=== PATIENT | male | born 1975 | race Caucasian/White ===

== ENCOUNTER 2022-11-20 00:31 | Emergency (ER) | payer OTHER, SELFPAY ==
[2022-11-20] VITALS (23 sets, daily range): BP systolic 126–220; BP diastolic 72–132; PULSE 70–90; RESP 7–22; TEMP 36.5; O2SAT 92–96; BMI 36.6
--- NOTE | 2022-11-20 01:16 | ED.CHESTPAI1 ---
HPI - Chest Pain General Chief Complaint: Chest Pain Stated Complaint: CHEST PAIN Time Seen by Provider: 11/20/22 01:16 Source: patient Mode of arrival: walk-in Limitations: no limitations History of Present Illness HPI narrative: pt presents emergency department complaining of chest pain. he states he has been recently treated for Sinusitis with Augmentin, and a Medrol Dosepak. Patient states he has been taking the medication for several days now. He went to bed last night was actually feeling better and in the middle of the night he woke up with chest pain substernal radiating to his neck and jaw. He states prior to having the pain he felt short of breath. He denied any fever, or chills. He denied any diaphoresis, dizziness, palpitations or lightheadedness. He states he had a heart catheterization 15 years ago. He states he has a history of an abnormal EKG and abnormal stress test. He had hyperlipidemia but in the last 3 years his cholesterol has been normal every time he has checked. He does not have a history of heart disease. He's never had stents. He has not taking any medications for the pain. He denies any anxiety, depression. Patient is not a smoker. He denies any history of thrombotic embolic disease. He denies any nausea, vomiting, diarrhea, constipation, or abdominal pain. He denies any trauma. Related Data Home Medications Medication Instructions Recorded Confirmed amoxicillin 875 mg-potassium 1 tab PO DAILY 11/20/22 11/20/22 clavulanate 125 mg tablet Allergies Allergy/AdvReac Type Severity Reaction Status Date / Time No Known Drug Allergies Allergy Verified 11/20/22 00:44 Review of Systems ROS Status of ROS 10 or more systems reviewed and unremarkable except as noted in history and below Exam Narrative Exam Narrative: Nurses notes and vital signs reviewed and patient is not hypoxic. General: Nontoxic, Well-appearing and in no apparent distress. Skin: Warm, dry, no pallor noted. No Rash Head: Normocephalic, atraumatic. Neck: Supple, non-tender. Eye: Pupils are equal, round and EOMI. No scleral icterus. Ears, Nose, Mouth, and Throat: TM clear, no posterior oropharynx erythema or nasal mucosal hypertrophy, uvula is mid-line Oral mucosa is moist Cardiovascular: Regular Rate and Rhythm without murmur, gallop or rub. Respiratory: No accessory muscle use or respiratory distress. Lungs are clear to auscultation, no wheezing, rales or rhonchi Chest Wall: no tenderness Back: No midline thoracic or lumbar vertebral tenderness. No CVA tenderness Musculoskeletal: normal ROM, no calf or popliteal tenderness, no lower extremity edema/swelling GI: Abdomen is soft, non-distended. Normal bowel sounds. No masses appreciated. No tenderness to palpation. No rebound, guarding, or rigidity noted. Neurological: A&O x4. No cranial nerve dysfunction observed. No truncal ataxia. Moves all extremities. Sensation intact. Psychiatric: Cooperative and interactive. Normal mood and affect. Constitutional Vital Signs, click to edit/add: Last Vital Signs Temp 97.7 F 11/20/22 00:41 Pulse 78 11/20/22 03:30 Resp 21 11/20/22 03:30 BP 130/85 11/20/22 03:22 Pulse Ox 96 11/20/22 02:00 O2 Del Method Room Air 11/20/22 00:41 Course Vital Signs Vital signs: Vital Signs Temperature 97.7 F 11/20/22 00:41 Pulse Rate 84 11/20/22 00:41 Respiratory Rate 18 11/20/22 00:41 Blood Pressure 168/100 H 11/20/22 00:41 Pulse Oximetry 96 11/20/22 00:41 Oxygen Delivery Method Room Air 11/20/22 00:41 Temperature 97.7 F 11/20/22 00:41 Pulse Rate 78 11/20/22 03:30 Respiratory Rate 21 11/20/22 03:30 Blood Pressure 130/85 11/20/22 03:22 Pulse Oximetry 96 11/20/22 02:00 Oxygen Delivery Method Room Air 11/20/22 00:41 MDM - Chest Pain MDM Narrative Medical decision making narrative: EKG is sinus rhythm at 78 bpm. There are no acute ischemic changes. Chest x-rays unremarkable. Lab studies show normal troponin without a delta ?2. Patient's heart score is less than 3. Patient is pain-free. He was given nitroglycerin, and Toradol in the emergency department for pain. 2nd EKG does not show any ischemic changes. Patient is stable for outpatient follow-up. At this time the patient is without objective evidence of an acute process requiring hospitalization or inpatient management. The patient has remained hemodynamically stable. No additional indication for emergent studies at this time. I answered all questions. Discussed discharge instructions including standard anticipatory guidance and what should prompt a return to the emergency department, including if they get worse are not getting better or develops any new or concerning symptoms. I've given them specific time frame in which to follow-up, and who to follow-up with. The patient demonstrates understanding. Patient is nontoxic and stable for discharge with outpatient follow-up. This note was created with the assistance of a speech recognition program. Although the intention is to generate documents that actually reflects the content of the visit, no guarantees can be provided that every mistake has been identified and corrected by editing. Differential Diagnosis Differential diagnosis: Likely pneumothorax, atypical chest pain, st elevation myocardial infarction and chest pain Lab Data Attestation: I reviewed the patient's lab results. Labs: Lab Results 11/20/22 11/20/22 11/20/22 Range/Units 00:49 02:05 02:51 WBC 11.7 H (4.0-11.0) 10^3/uL RBC 5.50 (4.70-6.10) 10^6/uL Hgb 15.2 (14.0-18.0) g/dL Hct 45.6 (42.0-54.0) % MCV 82.9 (80.0-94.0) fL MCH 27.6 (25.9-34.0) pg MCHC 33.3 (29.9-35.2) g/dL RDW 14.3 (11.0-15.0) % Plt Count 243 (150-450) 10^3/uL MPV 10.9 (9.5-13.5) fL Neut % (Auto) 78.7 H (43.0-75.0) % Lymph % (Auto) 13.7 L (20.5-60.0) % Forrest % (Auto) 5.9 (1.7-12.0) % Eos % (Auto) 1.1 (0.9-7.0) % Baso % (Auto) 0.2 (0.2-2.0) % Neut # (Auto) 9.2 H (1.4-6.5) 10^3/uL Lymph # (Auto) 1.6 (1.2-3.8) 10^3/uL Forrest # (Auto) 0.7 (0.3-0.8) 10^3/uL Eos # (Auto) 0.1 (0.0-0.7) 10^3/uL Baso # (Auto) 0.0 (0.0-0.1) 10^3/uL Abs Immat Gran (auto) 0.05 H (0.00-0.03) 10^3/uL Imm/Tot Granulo (auto) 0.4 (0.0-0.5) % D-Dimer <0.19 (<=0.59) mg/L FEU Sodium 138 (136-145) mmol/L Potassium 3.9 (3.5-5.1) mmol/L Chloride 103 (98-107) mmol/L Carbon Dioxide 26.9 (21.0-32.0) mmol/L Anion Gap 12.0 BUN 21.0 H (7.0-18.0) mg/dL Creatinine 1.21 (0.70-1.30) mg/dL Est GFR ( Amer) >60 (>=60) Est GFR (Non-Af Amer) >60 (>=60) BUN/Creatinine Ratio 17.4 Glucose 139 H (74-106) mg/dL Calcium 9.1 (8.5-10.1) mg/dL Total Bilirubin 0.3 (0.2-1.0) mg/dL AST 6 L (15-37) U/L ALT 32 (16-63) U/L Alkaline Phosphatase 75 (46-116) U/L Troponin I High Sens 7.9 6.7 (4.0-76.1) pg/mL NT-Pro-B Natriuret Pep 53.0 (<=450.0) pg/mL Total Protein 8.2 (6.4-8.2) g/dL Albumin 4.4 (3.4-5.0) g/dL Urine Opiates Screen Negative (NEGATIVE) Ur Buprenorphine Scrn Negative (NEGATIVE) Ur Oxycodone Screen Negative (NEGATIVE) Urine Methadone Screen Negative (NEGATIVE) Ur Propoxyphene Screen Negative (NEGATIVE) Ur Barbiturates Screen Negative (NEGATIVE) U Tricyclic Antidepress Negative (NEGATIVE) Ur Phencyclidine Scrn Negative (NEGATIVE) Ur Amphetamines Screen Negative (NEGATIVE) U Methamphetamines Scrn Negative (NEGATIVE) U Benzodiazepines Scrn Negative (NEGATIVE) Urine Cocaine Screen Negative (NEGATIVE) U Cannabinoids Screen Negative (NEGATIVE) ECG Data Attestation: I personally reviewed and interpreted this ECG as follows: Heart Score History: Slightly/Non-Suspicious ECG: Normal Age: >45-<65 years Risk Factors: No Risk Factors Troponin: <Normal Limit Total Heart Score Recommendations & Risks:: 1 Discharge Plan Discharge Chief Complaint: Chest Pain Clinical Impression: Chest pain Patient Disposition: Home, Self-Care Time of Disposition Decision: 03:29 Condition: Good Mode of Transportation: Private Vehicle Prescriptions / Home Meds: No Action amoxicillin-pot clavulanate 875-125 mg tablet 1 tab PO DAILY Instructions: Chest Pain (ED) Stand Alone Forms: Portal Instructions Referrals: Yeimy Rodrigez MD [Primary Care Provider] - 1 week Discharge Date/Time: 11/20/22 03:41
--- NOTE | 2022-11-20 01:17 | ECG_ITS ---
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
--- NOTE | 2022-11-20 01:17 | XR_ITS ---
[address] [address] Patient Name: KAROLINA TERRY MRN: [id number] date: 1975 Sex: M Assigned Patient Location: ER Current Patient Location: ER Accession/Order Number: [id number] Exam Date: 11/20/2022 01:05 Report Date: 11/20/2022 02:03 At the request of: CASS MACEDO Procedure: XR chest 1V EXAMINATION: XR chest 1V HISTORY: Chest pain COMPARISON: Chest x-ray 08/11/2020 TECHNIQUE: Portable chest FINDINGS: The lung parenchyma is free of consolidation or infiltrate. No pneumothorax or pleural effusion. The cardiac, mediastinal and hilar contours are normal. The visualized osseous structures exhibit no gross abnormality. XR/XR chest 1V IMPRESSION: No acute cardiopulmonary abnormality. Electronically authenticated by: FELIPE MOULTON Date: 11/20/2022 02:03
[2022-11-20 01:40] LABS: Basophils Percent Auto 0.2 % (0.2-2.0); Eosinophils Absolute Auto 0.1 10^3/uL (0.0-0.7); Eosinophils Percent Auto 1.1 % (0.9-7.0); Hematocrit 45.6 % (42.0-54.0); Hemoglobin 15.2 g/dL (14.0-18.0); Immature Granulocytes Abs Auto 0.05 10^3/uL (0.00-0.03); Immature Granulocytes Pct Auto 0.4 % (0.0-0.5); Lymphocytes Absolute Auto 1.6 10^3/uL (1.2-3.8); Lymphocytes Percent Auto 13.7 % (20.5-60.0); Mean Corpuscular HGB Conc 33.3 g/dL (29.9-35.2); Mean Corpuscular Hemoglobin 27.6 pg (25.9-34.0); Mean Corpuscular Volume 82.9 fL (80.0-94.0); Mean Platelet Volume 10.9 fL (9.5-13.5); Monocytes Absolute Auto 0.7 10^3/uL (0.3-0.8); Monocytes Percent Auto 5.9 % (1.7-12.0); Neutrophils Absolute Auto 9.2 10^3/uL (1.4-6.5); Neutrophils Percent Auto 78.7 % (43.0-75.0); Platelet Count 243 10^3/uL (150-450); Red Cell Distribution Width 14.3 % (11.0-15.0); White Blood Count 11.7 10^3/uL (4.0-11.0)
[2022-11-20 01:57] LABS: BUN Creatinine Ratio 17.4; Calcium 9.1 mg/dL (8.5-10.1); Carbon Dioxide 26.9 mmol/L (21.0-32.0); Chloride 103 mmol/L (98-107); Estimated GFR (African America >60 (>=60); Estimated GFR (Non-African Ame >60 (>=60); Glucose 139 mg/dL (74-106); Potassium 3.9 mmol/L (3.5-5.1); Sodium 138 mmol/L (136-145); Troponin I High Sensitivity 7.9 pg/mL (4.0-76.1)
[2022-11-20] MEDS: ASPIRIN 325 MG TABLET PO (02:02)
[2022-11-20 02:12] LABS: D Dimer <0.19 mg/L FEU (<=0.59)
[2022-11-20 02:23] LABS: Alanine Aminotransferase 32 U/L (16-63); Albumin Level 4.4 g/dL (3.4-5.0); Alkaline Phosphatase 75 U/L (46-116); Aspartate Amino Transferase 6 U/L (15-37); Bilirubin Total 0.3 mg/dL (0.2-1.0); Total Protein 8.2 g/dL (6.4-8.2)
[2022-11-20] MEDS: NITROGLYCERIN 0.4 MG TAB.SUBL PO (02:26)
[2022-11-20 02:56] LABS: Amphetamine Screen Urine NEGATIVE (NEGATIVE); Barbiturates Screen Urine NEGATIVE (NEGATIVE); Benzodiazepines Screen Urine NEGATIVE (NEGATIVE); Buprenorphine Screen Urine NEGATIVE (NEGATIVE); Cannabinoid Screen Urine NEGATIVE (NEGATIVE); Cocaine Screen Urine NEGATIVE (NEGATIVE); Methadone Screen Urine NEGATIVE (NEGATIVE); Methamphetamines Screen Urine NEGATIVE (NEGATIVE); Opiate Screen Urine NEGATIVE (NEGATIVE); Oxycodone Screen Urine NEGATIVE (NEGATIVE); Phencyclidine Screen Urine NEGATIVE (NEGATIVE); Tricyclic Antidepressant Urine NEGATIVE (NEGATIVE)
[2022-11-20] MEDS: KETOROLAC TROMETHAMINE 30 MG/ML VIAL IVP (02:58)
[2022-11-20 03:13] LABS: Troponin I High Sensitivity 6.7 pg/mL (4.0-76.1)
--- NOTE | 2022-11-20 03:24 | ECG_ITS ---
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
== END 2022-11-20 03:41 | disposition home or self-care (01) ==
PROVIDERS: Emergency Provider Emergency Medicine; PCP Family Medicine
DX: R07.9 Chest pain, unspecified (principal)
CPT/HCPCS: 36415; 71045; 80048; 80053; 80307; 82042; 82247; 83880; 84075; 84155; 84450; 84460; 84484; 85025; 85378; 93005; 96374; 99285

== ENCOUNTER 2024-09-06 10:20 | Emergency (ER) | payer OTHER, SELFPAY ==
[2024-09-06] VITALS (17 sets, daily range): BP systolic 135–173; BP diastolic 76–90; PULSE 75–90; TEMP 37.1; O2SAT 96–97; BMI 37.0
--- NOTE | 2024-09-06 10:33 | ECG_ITS ---
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 Measurements Intervals [place] Rate: 78 P: 56 NE: 170 QRS: 60 QRSD: 94 T: 26 QT: 360 QTc: 393 Interpretive Statements 1100 Sinus rhythm 9110 normal ECG Compared to ECG 11/20/2022 03:23:42 No significant changes Electronically Signed On 09-06-2024 18:45:21 EDT by DANAE HEBERT M.D.
--- NOTE | 2024-09-06 10:34 | ED.GENADUL1 ---
HPI HPI - General Adult General Chief complaint: Neuro Symptoms/Deficit Stated complaint: LEFT SIDE NUMBNESS, PT IS DIABETIC Time Seen by Provider: 09/06/24 10:28 Mode of arrival: walk-in History of Present Illness HPI narrative: 48-year-old male presents to the emergency department for numbness on the left side of his face. He woke up with it at 815 this morning, he did not have it when he went to bed last night. When he woke up he was also shaky so he ate something and the shakiness went away. The numbness on the left side of his face did not and it extends from below the eye down to his jaw. No speech problems or weakness or numbness in his arms or legs. 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 The left side of his chest has been hurting since he woke up this morning at 815 as well. Related Data Home Medications ?Medication ?Instructions ?Recorded ?Confirmed metformin 500 mg tablet,extended 500 mg PO DAILY 09/06/24 09/06/24 release 24 hr Allergies Allergy/AdvReac Type Severity Reaction Status Date / Time No Known Drug Allergies Allergy Verified 11/20/22 00:44 Opioid HPI Opioid Management Most Recent Opioid Data: Last Pain Scale 4 11/20/22, 02:58 Ur Phencyclidine Scrn, (NEGATIVE) Negative 11/20/22, 02:05 Review of Systems ROS Narrative A ten point review of systems is negative except as noted above. PFSH PFSH Social History Little interest or pleasure in doing things: not at all Feeling down, depressed, or hopeless: not at all Exam Narrative Exam Narrative: Nurses note and vital signs reviewed and patient is not hypoxic. General: The patient appears well and in no apparent distress. Patient is resting comfortably on cart. Skin: Warm, dry, no pallor noted. There is no rash noted. Head: Normocephalic, atraumatic Eye: Normal conjunctiva, no drainage Ears, Nose, Mouth, and Throat: oral mucosa is moist. Nares patent. Cardiovascular: Regular Rate and Rhythm Respiratory: Patient is in no distress, no accessory muscle use, lungs are clear to auscultation, no wheezing, rales or rhonchi Back: non-tender GI: Normal bowel sounds, no tenderness to palpation, no masses appreciated. No rebound, guarding, or rigidity noted. Musculoskeletal: The patient has no evidence of calf tenderness, no pitting edema, symmetrical pulses noted bilaterally Neurological: A&O x4, normal speech; upper and lower extremity strength 5 out of 5 and symmetric. Cranial nerves II through XII are intact except for subjective numbness on the left side of his face Psychiatric: Cooperative Constitutional Vital Signs, click to edit/add: Last Vital Signs Temp 98.7 F 09/06/24 10:25 Pulse 80 09/06/24 12:50 Resp 19 09/06/24 12:50 BP 140/76 09/06/24 12:30 Pulse Ox 96 09/06/24 10:27 Course Vital Signs Vital signs: Vital Signs Temperature 98.7 F 09/06/24 10:25 Pulse Rate 76 09/06/24 10:25 Respiratory Rate 20 09/06/24 10:25 Blood Pressure 173/90 H 09/06/24 10:25 Pulse Oximetry 97 09/06/24 10:25 Temperature 98.7 F 09/06/24 10:25 Pulse Rate 80 09/06/24 12:50 Respiratory Rate 19 09/06/24 12:50 Blood Pressure 140/76 09/06/24 12:30 Pulse Oximetry 96 09/06/24 10:27 Medical Decision Making MDM Narrative Medical decision making narrative: His workup is negative and his symptom is subsiding. He had CT brain and CTA head and neck which were negative. The rest of his workup is negative as well. At this point I do not suspect an acute stroke. He will be discharged home and follow-up with his PCP. Treatment diagnosis and follow-up were discussed with the patient. Differential Diagnosis Differential Diagnosis: Stroke, paresthesia, hypoglycemia Lab Data Lab results reviewed: Yes I reviewed the patient's lab results Labs: Lab Results 09/06/24 09/06/24 Range/Units 10:30 10:38 WBC 8.5 (4.0-11.0) 10^3/uL RBC 5.57 (4.70-6.10) 10^6/uL Hgb 15.6 (14.0-18.0) g/dL Hct 45.5 (42.0-54.0) % MCV 81.7 (80.0-94.0) fL MCH 28.0 (25.9-34.0) pg MCHC 34.3 (29.9-35.2) g/dL RDW 13.8 (11.0-15.0) % Plt Count 257 (150-450) 10^3/uL MPV 10.6 (9.5-13.5) fL Neut % (Auto) 69.0 (43.0-75.0) % Lymph % (Auto) 21.9 (20.5-60.0) % Ransom % (Auto) 5.8 (1.7-12.0) % Eos % (Auto) 2.7 (0.9-7.0) % Baso % (Auto) 0.1 L (0.2-2.0) % Neut # (Auto) 5.9 (1.4-6.5) 10^3/uL Lymph # (Auto) 1.9 (1.2-3.8) 10^3/uL Ransom # (Auto) 0.5 (0.3-0.8) 10^3/uL Eos # (Auto) 0.2 (0.0-0.7) 10^3/uL Baso # (Auto) 0.0 (0.0-0.1) 10^3/uL Abs Immat Gran (auto) 0.04 H (0.00-0.03) 10^3/uL Imm/Tot Granulo (auto) 0.5 (0.0-0.5) % Sodium 143 (136-145) mmol/L Potassium 3.9 (3.5-5.1) mmol/L Chloride 105 (98-107) mmol/L Carbon Dioxide 28.8 (21.0-32.0) mmol/L Anion Gap 13.1 BUN 14.0 (7.0-18.0) mg/dL Creatinine 1.17 (0.70-1.30) mg/dL Est GFR ( Amer) >60 (>=60 mL/min/1.73m^2) Est GFR (Non-Af Amer) >60 (>=60 mL/min/1.73m^2) BUN/Creatinine Ratio 12.0 Glucose 124 H (74-106) mg/dL Calcium 9.1 (8.5-10.1) mg/dL Troponin I High Sens 6.9 (4.0-76.1) pg/mL POC Glucose 115 H (74-106) mg/dL Imaging Data CT scan - head: Radiologist's impression: CT brain: No acute process seen in the brain Chest x-ray: Mild hypoinflated lungs, mild enlarged heart size CTA brain and neck: Normal CT examination of the brain, normal CTA examination of the neck ECG Data Attestation: I personally reviewed and interpreted this ECG as follows: (EKG on my interpretation shows normal sinus rhythm with rate of 78 and no acute change.) Discharge Plan Discharge Chief Complaint: Neuro Symptoms/Deficit Clinical Impression: Paresthesia Patient Disposition: Home, Self-Care Time of Disposition Decision: 13:02 Condition: Good Mode of Transportation: Private Vehicle Prescriptions / Home Meds: No Action metformin 500 mg tablet extended release 24 hr 500 mg PO DAILY Print Language: [place] Islander Instructions: Paresthesia (ED) Referrals: Yeimy Rodrigez MD [Primary Care Provider, Family Practice] - 1 week
[2024-09-06 10:38] LABS: Glucometer 115 mg/dL (74-106)
--- OUTSIDE RECORDS SUMMARY | 2024-09-06 10:41 | XMS_ITS | Encounter Summary ---
Author Organization [facility] Address [address] [place] [address] Care Team Providers Care Manager Port Name Role Phone Yeimy Rodrigez MD Primary Care Provider [phone] Source Comments In the event this information is protected by the Federal Confidentiality of Alcohol and Drug AbusePatient Records regulations: The Federal rules restrict any use of the information to criminally investigate or prosecute any alcohol or drug abuse patient.[facility] Encounter Details Date Type Department Care Team (Late st Contact Info) Description 03/19/2023 Patient Msg Preventive Cardiology [address] [place] [address] Hilario Thurston MD [address] [place] [address] Stress Test Social History Tobacco Use Types Packs/Day Years Used Date Smoking Tobacco: Never Smokeless Tobacco: Never Alcohol Use Standard Drinks/Week Comments Yes 0 (1 standard drink = 0.6 oz pur e alcohol) social PHQ-2 Answer Date Recorded PHQ-2 score 0 02/23/2023 Area Deprivation Index Answer Date Nemesio rded National Score (1-100), lower number is lower ri sk Not on file 03/08/2020 State Score (1-10), lower number is lower risk N ot on file 03/08/2020 Data from: https://www.neighborhoodatlas.[facility].edu/. 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 Answer Date of Assessment Author No 09/16/2014 2:46 PM EDT Maurice Holguin lie * Are you blind or do you have serious difficulty seeing, even when wearing glasses? Answer Date of Assessment Author No 09/16/2014 2:46 PM EDT Maurice Holguin lie * Do you have serious difficulty walking or climbing stairs? Answer Date of Assessment Author No 09/16/2014 2:46 PM EDT Maurice Holguin lie * Do you have difficulty dressing or bathing? Answer Date of Assessment Author No 09/16/2014 2:46 PM EDT Maurice Holguin lie * Because of a physical, mental, or emotional condition, do you have difficulty doing errands alone such as visiting a doctor's office or shopping? Answer Date of Assessment Author No 09/16/2014 2:46 PM EDT Maurice Holguin lie documented as of this encounter Mental Status * Because of a physical, mental, or emotional condition, do you have serious difficulty concentrating, remembering, or making decisions? Answer Entry Date Author No 09/16/2014 2:46 PM EDMaurice Boles lie documented in this encounter Plan of Treatment Not on file documented as of this encounter Visit Diagnoses Not on filedocumented in this encounter Care Teams Manager Port Relationship Specialty Start Date End Date Yeimy Rodrigez MD [address] [place] [id number] PCP - General Family Medicine 01/14/15 documented as of this encounter
--- OUTSIDE RECORDS SUMMARY | 2024-09-06 10:41 | XMS_ITS | Encounter Summary ---
Author Organization [facility] Address [facility] [place] [address] Care Team Providers Care Color Mixer Name Role Phone Yeimy Rodrigez MD Primary Care Provider [phone] Andrew Sethi MD Unavailable [phone] Yeimy Rodrigez MD Primary Care Provider [phone] Source Comments In the event this information is protected by the Federal Confidentiality of Alcohol and Drug AbusePatient Records regulations: The Federal rules restrict any use of the information to criminally investigate or prosecute any alcohol or drug abuse patient.[facility] Encounter Details Date Type Department Care Team (Late st Contact Info) Description 01/20/2014 Patient Msg Medical Records [address] [place] [id number] Provider, [facility] lipid results Social History Tobacco Use Types Packs/Day Years Used Date Smoking Tobacco: Never Smokeless Tobacco: Never Alcohol Use Standard Drinks/Week Comments Yes 3.3 (1 standard drink = 0.6 oz p ure alcohol) special occasions Sex and Gender Information Value Date Recorded Sex Assigned at Not on file Legal Sex Male 8:19 AM EST Gender Identity Not on file Sexual Orientation Not on file 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 Answer Date of Assessment Author No 10/06/2013 7:00 AM Usha Lopez APRN.[employer] * Are you blind or do you have serious difficulty seeing, even when wearing glasses? Answer Date of Assessment Author No 10/06/2013 7:00 AM Usha Lopez APRN.[employer] * Do you have serious difficulty walking or climbing stairs? Answer Date of Assessment Author No 10/06/2013 7:00 AM Usha Lopez APRN.[employer] * Do you have difficulty dressing or bathing? Answer Date of Assessment Author No 10/06/2013 7:00 AM Usha Lopez APRN.[employer] * Because of a physical, mental, or emotional condition, do you have difficulty doing errands alone such as visiting a doctor's office or shopping? Answer Date of Assessment Author No 10/06/2013 7:00 AM Usha Lopez APRN.[employer] documented as of this encounter Mental Status * Because of a physical, mental, or emotional condition, do you have serious difficulty concentrating, remembering, or making decisions? Answer Entry Date Author No 10/06/2013 7:00 AM Usha Lopez APRN.[employer] documented in this encounter Plan of Treatment Not on file documented as of this encounter Visit Diagnoses Not on filedocumented in this encounter Care Teams Color Mixer Relationship Specialty Start Date End Date Yeimy Rodrigez MD [address] [place] [phone] PCP - General 03/03/09 01/13/15 Yeimy Rodrigez MD [address] [place] [id number] PCP - General Family Medicine 01/14/15 Andrew Sethi MD [address] [place] [address] Primary Staff Physician Cardiology 07/01/14 6 documented as of this encounter
--- OUTSIDE RECORDS SUMMARY | 2024-09-06 10:41 | XMS_ITS | Encounter Summary ---
Author Organization [facility] Address [facility] [place] [address] Care Team Providers Care Medical Underwriter Name Role Phone Yeimy Rodrigez MD Primary Care Provider [phone] Source Comments In the event this information is protected by the Federal Confidentiality of Alcohol and Drug AbusePatient Records regulations: The Federal rules restrict any use of the information to criminally investigate or prosecute any alcohol or drug abuse patient.[facility] Encounter Details Date Type Department Care Team (Late st Contact Info) Description 05/25/2016 Patient Msg Medical Records [address] [place] [id number] Provider, Ccf Reminder for appointment and labs Social History Tobacco Use Types Packs/Day Years Used Date Smoking Tobacco: Never Smokeless Tobacco: Never Alcohol Use Standard Drinks/Week Comments Yes 4.6 (1 standard drink = 0.6 oz p ure alcohol) social Sex and Gender Information Value Date Recorded Sex Assigned at Not on file Legal Sex Male 8:19 AM EST Gender Identity Not on file Sexual Orientation Not on file 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 Answer Date of Assessment Author No 09/16/2014 2:46 PM ALICE Maurice Holguin lie * Are you blind or do you have serious difficulty seeing, even when wearing glasses? Answer Date of Assessment Author No 09/16/2014 2:46 PM REECEMaurice Boles lie * Do you have serious difficulty walking or climbing stairs? Answer Date of Assessment Author No 09/16/2014 2:46 PM Maurice Bass lie * Do you have difficulty dressing or bathing? Answer Date of Assessment Author No 09/16/2014 2:46 PM EDShana Maurice Holguin lie * Because of a physical, mental, or emotional condition, do you have difficulty doing errands alone such as visiting a doctor's office or shopping? Answer Date of Assessment Author No 09/16/2014 2:46 PM REECEMaurice Boles documented as of this encounter Mental Status * Because of a physical, mental, or emotional condition, do you have serious difficulty concentrating, remembering, or making decisions? Answer Entry Date Author No 09/16/2014 2:46 PM ALICE Maurice Holguin documented in this encounter Plan of Treatment Not on file documented as of this encounter Visit Diagnoses Not on filedocumented in this encounter Care Teams Medical Underwriter Relationship Specialty [place] [address] [place] [phone] PCP - General Family Medicine 01/14/15 documented as of this encounter
--- OUTSIDE RECORDS SUMMARY | 2024-09-06 10:41 | XMS_ITS | Encounter Summary ---
Author Organization [facility] Address [address] [place] [address] Care Team Providers Care Client Relations Specialist Name Role Phone Yeimy Rodrigez MD Primary Care Provider Source Comments In the event this information is protected by the Federal Confidentiality of Alcohol and Drug AbusePatient Records regulations: The Federal rules restrict any use of the information to criminally investigate or prosecute any alcohol or drug abuse patient.[facility] Encounter Details Date Type Department Care Team (Late st Contact Info) Description 03/07/2023 Patient [place] [address] Provider, Ccf Insurance Denial Social History Tobacco Use Types Packs/Day Years [...] N ot on file 03/08/2020 Data from: https://www.neighborhoodatlas.medicine.[facility].edu/. 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
--- OUTSIDE RECORDS SUMMARY | 2024-09-06 10:41 | XMS_ITS | Encounter Summary ---
Author Organization [facility] Address [address] [place] [address] Care Team Providers Care Clinical Psychologist Name Role Phone Yeimy Rodrigez MD Primary Care Provider [phone] Source Comments In the event this information is protected by the Federal Confidentiality of Alcohol and Drug AbusePatient Records regulations: The Federal rules restrict any use of the information to criminally investigate or prosecute any alcohol or drug abuse patient.[facility] Encounter Details Date Type Department Care Team (Late st Contact Info) Description 06/11/2018 Patient Msg Preventive Cardiology [address] [place], [place] [phone] Provider, Ccf courtesy reminder Social History Tobacco Use Types Packs/Day Years Used Date Smoking Tobacco: Never Smokeless Tobacco: Never Alcohol Use Standard Drinks/Week Comments Yes 0 (1 standard drink = 0.6 oz pur e alcohol) social Sex and Gender Information Value Date Recorded Sex Assigned at Not on file Legal Sex Male 8:19 AM EST Gender Identity Not on file Sexual Orientation Not on file 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 Answer Date of Assessment Author No 09/16/2014 2:46 PM EDT [place] lie * Are you blind or do [...] on filedocumented in this encounter Care Teams Clinical Psychologist Relationship Specialty Start Date End Date Yeimy Rodrigez MD [address] [place] [phone] PCP - General Family Medicine 01/14/15 documented as of this encounter
--- OUTSIDE RECORDS SUMMARY | 2024-09-06 10:41 | XMS_ITS | Clinical Summary ---
Author Organization [facility] Address [address] [facility] [place] [address] Phone Care Team Providers Care Bulk Folder Name Role Phone Unavailable Primary Care Provider Unavailabl e Social History Tobacco Use Types Packs/Day Years Used Date Smoking Tobacco: Never Assessed Sex and Gender Information Value Date Recorded Sex Assigned at Not on file Legal Sex Male 11:12 AM EST Gender Identity Not on file Sexual Orientation Not on file Plan of Treatment Not on file
--- OUTSIDE RECORDS SUMMARY | 2024-09-06 10:41 | XMS_ITS | Encounter Summary ---
Author Organization [facility] Address [facility] [place] [address] Care Team Providers Care Banquet Lead Name Role Phone Yeimy Rodrigez MD Primary Care Provider [phone] Andrew Sethi MD Unavailable Yeimy Rodrigez MD Primary Care Provider [phone] Source Comments In the event this information is protected by the Federal Confidentiality of Alcohol and Drug AbusePatient Records regulations: The Federal rules restrict any use of the information to criminally investigate or prosecute any alcohol or drug abuse patient.[facility] Encounter Details Date Type Department Care Team (Late st Contact Info) Description 10/01/2013 Patient Msg Medical Records [address] [place] [address] Provider, Ccf Missing lab results Social History Tobacco Use Types Packs/Day [...] Not on file Not on file 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
--- OUTSIDE RECORDS SUMMARY | 2024-09-06 10:41 | XMS_ITS | Encounter Summary ---
Author Organization [facility] Address [facility] [place] [address] Care Team Providers Care Yard Laborer Name Role Phone Yeimy Rodrigez MD Primary Care Provider [phone] Andrew Sethi MD Unavailable [phone] Yeimy Rodrigez MD Primary Care Provider [phone] Source Comments In the event this information is protected by the Federal Confidentiality of Alcohol and Drug AbusePatient Records regulations: The Federal rules restrict any use of the information to criminally investigate or prosecute any alcohol or drug abuse patient.[facility] Encounter Details Date Type Department Care Team (Late st Contact Info) Description 12/18/2014 Patient Msg Medical Records [address] [place] [address] Provider, Ccf RE: Appointment Cancellation Request Social History Tobacco Use Types Packs/Day Years Used Date Smoking Tobacco: Never Smokeless Tobacco: Never Alcohol Use Standard Drinks/Week Comments No 0 (1 standard drink = 0.6 oz pur e alcohol) none at present. never heavy. 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 file Not on file [...] Entry Date Author No 09/16/2014 2:46 PM EDT Maurice Holguin lie documented in this encounter Plan of Treatment Not on file documented as of this encounter Visit Diagnoses Not on filedocumented in this encounter Care Teams Yard Laborer Relationship Specialty Start Date End Date Yeimy Rodrigez MD [address] [place] [phone] PCP - General 03/03/09 01/13/15 Yeimy Rodrigez MD [address] [place] [phone] PCP - General Family Medicine 01/14/15 Andrew Sethi MD [address] [place] [address] Primary Staff Physician Cardiology 07/01/14 6 documented as of this encounter
--- OUTSIDE RECORDS SUMMARY | 2024-09-06 10:41 | XMS_ITS | Clinical Summary ---
Author Organization [facility] Address [address] [place] [address] Care Team Providers Care Show Girl Name Role Phone Yeimy Rodrigez MD Primary Care Provider [phone] Allergies Active Allergy Reactions Criticality Noted Date Comments Seasonal Allergies Other: See Comments 01/13/20 10 Sneezing, congestion, watery eyes Medications loratadine/pseu doephedrine (CLARITIN-D 24 HOUR ORAL) Take by mouth once daily. Active fluticasone (FLONASE ALLERGY RELIEF) 50 mcg/actuation nasal spray Use 1 [place] in each nostril as needed. Active Active Problems Problem Noted Date Diagnosed Date Fall 02/24/2015 Annular tear of lumbar disc 01/07/2015 Fall (on) (from) other stairs and steps, initial encounter 01/07/2015 Impaired fasting glucose 03/03/2009 Hyperlipemia Family history of premature coronary heart disea se Enlarged lymph node Overview (01/07/2015): inguinal Back pain Family History Medical History Relation Comments Arthritis Father Coronary Artery Disease Father ID 57 ye ars, alive, PCI Heart Failure Father Lipids Father alive age 55 Cancer Maternal Grandmother Diabetes Maternal Grandmother Lipids Mother alive age 50's Heart Paternal Grandfather alive age 8 0's; heart attack age 70's colitis [Other] Paternal Grandfather also cousin and aunt Heart Paternal Uncle alive age 45; ID age 40 Hypertension Other Relation Status Comments Father Maternal Grandmother Mother Paternal Grandfather Paternal Uncle Other Social History Tobacco Use Types Packs/Day Years Used Date Smoking Tobacco: Never Smokeless Tobacco: Never Tobacco Cessation:Counseling Given: Not Answered Alcohol Use Standard Drinks/Week Comments Yes 0 (1 standard drink = 0.6 oz pur e alcohol) social PHQ-2 Answer Date Recorded PHQ-2 score 0 02/23/2023 Area Deprivation Index Answer Date Nemesio rded National Score (1-100), lower number is lower ri sk Not on file 03/08/2020 State Score (1-10), lower number is lower risk N ot on file 03/08/2020 Data from: https://www.neighborhoodatlas.medicine.[facility]/. 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 Not on file Not on ilana e Last Filed Vital Signs Vital Sign Reading Time Taken Comments Blood Pressure 137/78 08/24/2023 12:26 PM EDT Pulse 82 08/24/2023 12:26 PM EDT Temperature 36.9 C (98.5 F) 08/05/2014 2:42 PM EDT Respiratory Rate 20 02/24/2015 4:05 PM EST Oxygen Saturation - - Inhaled Oxygen Concentration - - Weight 118.5 kg (261 lb 3.2 oz) 024 12:26 PM EDT Height 180.3 cm (5' 11 ) 08/24/2023 12: 26 PM EDT Body Mass Index 36.43 08/24/2023 12:26 PM EDT Plan of Treatment Health Maintenance Due Date Last Done Comments Anxiety Screening 1994 Depression Screening 1994 HIV Screening 1994 Hepatitis C Screening 1994 DTaP,Tdap,Td Vaccine (1 - Tdap) 12/27/1995 CT Colonography 2021 Cologuard (FIT-DNA) 2021 Colonoscopy 2021 Colorectal Cancer Screening 2021 Fecal Occult Blood 2021 Sigmoidoscopy 2021 Covid-19 Vaccine ( - 2023-2 5 season) 2023 Influenza Vaccine (Season Ended) 2024 02/24/2020, 01/02/2019, 01/04/2018, Additional history exists Diabetes Screening 03/14/2026 03/14/2023, 1 05/15/2022, 01/28/2018, Additional history exists Lipid Screening 03/14/2028 03/14/2023, 01/01, 07/19/2017, Additional history exists Hepatitis B Vaccine Completed 03/04/2013, 09/17/2012, 08/08/2012 Goals Goal Patient Goal Type Associated Problems Recent Progress Patient-Stated? Author Blood Pressure < 140/90 Blood Pressure 137/78( 024 12:26 PM EDT) No Hilario Thurston MD Procedures Procedure Name Priority Date/Time Associated Diagnosis Comments COMPREHENSIVE METABOLIC PANEL Routine 03/14/2023 9:42 AM EST Mixed hyperlipidemia Obesity, Class II, BMI 35-39.9 LIPID PANEL, FASTING Routine 03/14/2023 9:42 AM EST Chest pain, unspecified type from Last 3 Months or Most Recently Relevant to Health Maintenance Results * (ABNORMAL) LIPID PANEL BASIC (03/14/2023 9:42 AM EST) Cholesterol, Total 195 <200 mg/dL 03/14/2023 6:26 PM [facility] Comment: <200 mg/dL, Desirable 200-239 mg/dL, Borderline high >239 mg/dL, High Triglyceride 179(H) <150 mg/dL 03/14/2023 6:26 PM EST [facility] Comment: <150 mg/dL, Normal 150-199 mg/dL, Borderline high 200-499 mg/dL, High >499 mg/dL, Very high HDL Cholesterol 29(L) >39 mg/dL 6:26 PM EST [facility] Comment: 40-59 mg/dL, Acceptable >59 mg/dL, High: Negative risk factor for coronary heart disease <40 mg/dL, Low: Positive risk factor for coronary heart disease Non HDL Cholesterol 166(H) <130 mg/dL 03/14/2023 6:26 PM EST [facility] Comment: <130 mg/dL, Optimal 130-159 mg/dL, Near optimal/above optimal 160-189 mg/dL, Borderline high 190-219 mg/dL, High >219 mg/dL, Very high Secondary prevention optimal non HDL Cholesterol levels are recommended to be <100 mg/dL Fasting Time 12 hrs 03/14/2023 6:26 PM EST [facility] VLDL Cholesterol 36(H) <30 mg/dL 03/14/20 6:26 PM EST [facility] TC:HDL Ratio 6.72(H) <5.10 03/14/2023 6:26 PM EST [facility] LDL Cholesterol, Calculated 130(H) <100 mg/dL 03/14/2023 6:26 PM EST [facility] Comment: <100 mg/dL, Optimal 100-129 mg/dL, Near optimal/above optimal 130-159 mg/dL, Borderline high 160-189 mg/dL, High >189 mg/dL, Very high Secondary prevention optimal LDL Cholesterol levels are recommended to be < 70 mg/dL LDL:HDL Ratio 4.48(H) <2.54 03/14/2023 6:26 PM EST [facility] Comment: Reference: 1. National Cholesterol Education Program ATP III Guideline At-A-Glance Quick Desk Reference: National Heart, Lung, and Blood [place]. National Institutes of Health. 2001: NIH Publication No. 01-3305. 2. An International Atherosclerosis Society position paper: global recommendations for the management of dyslipidemia: executive summary, Atherosclerosis. 2014: 232(2):410-413. Blood BLOOD SPECIMEN / Unknown Venipuncture / Unknown 03/14/2023 9:42 AM EST 03/14/2023 9:43 AM EST us Hilario Thurston MD LABORATORY Final Result [facility] [address] * (ABNORMAL) COMP METABOLIC PANEL (03/14/2023 9:42 AM EST) Protein, Total 7.7 6.3 - 8.0 g/dL 03/14/2023 6:26 PM EST [facility] Albumin 5.0(H) 3.9 - 4.9 g/dL 03/14/2023 6:26 PM [facility] Calcium, Total 9.8 8.5 - 10.2 mg/dL 03/14/2023 6:26 PM [facility] Bilirubin, Total 0.4 0.2 - 1.3 mg/dL 03/14/2023 6:26 PM [facility] Alkaline Phosphatase 64 38 - 113 U/L 03/14/2023 6:26 PM [facility] AST 19 14 - 40 U/L 03/14/2023 6:26 PM [facility] ALT 24 10 - 54 U/L 03/14/2023 6:26 PM [facility] Glucose 107(H) 74 - 99 mg/dL 03/14/2023 6:26 PM [facility] Comment: The [place] Diabetes Association (ADA) provides guidance for cutoff values for fasting glucose and random glucose. The ADA defines fasting as no caloric intake for at least 8 hours. Fasting plasma glucose results between 100 to 125 mg/dL indicate increased risk for diabetes (prediabetes). Fasting plasma glucose results greater than or equal to 126 mg/dL meet the criteria for diagnosis of diabetes. In the absence of unequivocal hyperglycemia, results should be confirmed by repeat testing. In a patient with classic symptoms of hyperglycemia or hyperglycemic crisis, random plasma glucose results greater than or equal to 200 mg/dL meet the criteria for diagnosis of diabetes. Reference: Standards of Medical Care in Diabetes 2016, [place] Diabetes Association. Diabetes Care. 2016.39(Suppl 1). BUN 14 9 - 24 mg/dL 03/14/2023 6:26 PM [facility] Creatinine 1.25(H) 0.73 - 1.22 mg/dL 03/14/2023 6:26 PM [facility] Sodium 143 136 - 144 mmol/L 03/14/2023 6:26 PM [facility] Potassium 4.1 3.7 - 5.1 mmol/L 03/14/2023 6:26 PM [facility] Chloride 105 97 - 105 mmol/L 03/14/2023 6:26 PM [facility] CO2 23 22 - 30 mmol/L 03/14/2023 6:26 PM EST [facility] Anion Gap 15 9 - 18 mmol/L 03/14/2023 6:26 PM EST [facility] Estimated Glomerular Filtration Rate 72 >=60 mL/min/1. 73m 03/14/2023 6:26 PM EST [facility] Comment:Estimated Glomerular Filtration Rate (eGFR) is calculated using the 2020 CKD-EPI creatinine equation. This equation utilizes serum creatinine, sex, and age as parameters. The creatinine assay has traceable calibration to isotope dilution- mass spectrometry. Refer to KDIGO guidelines for clinical interpretation. In patients with unstable renal function, e.g. those with acute kidney injury, the eGFR may not accurately reflect actual GFR. Blood BLOOD SPECIMEN / Unknown Venipuncture / Unknown 03/14/2023 9:42 AM EST 03/14/2023 9:43 AM EST us Hilario Thurston MD LABORATORY Final Result [facility] [address] [address], from Last 3 Months or Most Recently Relevant to Health Maintenance [facility] Care Teams Show Girl Relationship Specialty Start Date End Date Yeimy Rodrigez MD [address] [place] [phone] PCP - General Family Medicine 01/14/15
--- OUTSIDE RECORDS SUMMARY | 2024-09-06 10:41 | XMS_ITS | Encounter Summary ---
Author Organization [facility] Address [address] [place] [address] Care Team Providers Care Rivet Tapping Machine Operator Name Role Phone Yeimy Rodrigez MD Primary Care Provider [phone] Source Comments In the event this information is protected by the Federal Confidentiality of Alcohol and Drug AbusePatient Records regulations: The Federal rules restrict any use of the information to criminally investigate or prosecute any alcohol or drug abuse patient.[facility] Encounter Details Date Type Department Care Team (Late st Contact Info) Description 12/13/2017 Patient Msg Cardiology [address] [place], [place] [id number] Provider, Concepcion courtesy reminder Social History Tobacco Use Types [...] 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 Answer Date of Assessment Author No 09/16/2014 2:46 PM EDMaurice Boles lie * Do you have difficulty dressing or bathing? Answer Date of Assessment Author No 09/16/2014 2:46 PM EDT Maurice Holguin lie * Because of a physical, mental, or emotional condition, do you have difficulty doing errands alone such as visiting a doctor's office or shopping? Answer Date of Assessment Author No 09/16/2014 2:46 PM EDMaurice Boles lie documented as of this encounter Mental Status * Because of a physical, mental, or emotional condition, do you have serious difficulty concentrating, remembering, or making decisions? Answer Entry Date Author No 09/16/2014 2:46 PM ALICE Maurice Holguin documented in this encounter Plan of Treatment Not on file documented as of this encounter Visit Diagnoses Not on filedocumented in this encounter Care Teams Rivet Tapping Machine Operator Relationship Specialty Start Date End Date Yeimy Rodrigez MD [address] [place] [phone] PCP - General Family Medicine 01/14/15 documented as of this encounter
--- OUTSIDE RECORDS SUMMARY | 2024-09-06 10:41 | XMS_ITS | Encounter Summary ---
Author Organization [facility] Address [facility] [place] [address] Care Team Providers Care Solar Project Engineer Name Role Phone Yeimy Rodrigez MD Primary Care Provider [phone] Andrew Sethi MD Unavailable [phone] Yeimy Rodrigez MD Primary Care Provider [phone] Source Comments In the event this information is protected by the Federal Confidentiality of Alcohol and Drug AbusePatient Records regulations: The Federal rules restrict any use of the information to criminally investigate or prosecute any alcohol or drug abuse patient.[facility] Encounter Details Date Type Department Care Team (Late st Contact Info) Description 12/22/2013 Patient Msg Medical Records [address] [place] [address] Provider, Ccf lipids Social History Tobacco Use Types Packs/Day Years [...] Not on file Not on file 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 Answer Date of Assessment Author No 10/06/2013 7:00 AM Usha Lopez APRN.CERTIFIED PROFESSIONAL ERGONOMIST * Are you blind or do you have serious difficulty seeing, even when wearing glasses? Answer Date of Assessment Author No 10/06/2013 7:00 AM Usha Lopez APRN.CERTIFIED PROFESSIONAL ERGONOMIST * Do you have serious difficulty walking or climbing stairs? Answer Date of Assessment Author No 10/06/2013 7:00 AM Usha Lopez APRN.CERTIFIED PROFESSIONAL ERGONOMIST * Do you have difficulty dressing or bathing? Answer Date of Assessment Author No 10/06/2013 7:00 AM Usha Lopez APRN.CERTIFIED PROFESSIONAL ERGONOMIST * Because of a physical, mental, or emotional condition, do you have difficulty doing errands alone such as visiting a doctor's office or shopping? Answer Date of Assessment Author No 10/06/2013 7:00 AM Usha Lopez APRN.CERTIFIED PROFESSIONAL ERGONOMIST documented as of this encounter Mental Status * Because of a physical, mental, or emotional condition, do you have serious difficulty concentrating, remembering, or making decisions? Answer Entry Date Author No 10/06/2013 7:00 AM Usha Lopez APRN.CERTIFIED PROFESSIONAL ERGONOMIST documented in this encounter Plan of Treatment Not on file documented as of this encounter Visit Diagnoses Not on filedocumented in this encounter Care Teams Solar Project Engineer Relationship Specialty Start Date End Date Yeimy Rodrigez MD [address] [place] [id number] PCP - General 03/03/09 01/13/15 Yeimy Rodrigez MD [address] [place] [address] PCP - General Family Medicine 01/14/15 Andrew Sethi MD [address] [place] [address] Primary Staff Physician Cardiology 07/01/14 6 documented as of this encounter
--- OUTSIDE RECORDS SUMMARY | 2024-09-06 10:41 | XMS_ITS | Encounter Summary ---
Author Organization [facility] Address [address] [place] [address] Care Team Providers Care Water Resources Project Manager Name Role Phone Yeimy Rodrigez MD Primary Care Provider [phone] Source Comments In the event this information is protected by the Federal Confidentiality of Alcohol and Drug AbusePatient Records regulations: The Federal rules restrict any use of the information to criminally investigate or prosecute any alcohol or drug abuse patient.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
--- OUTSIDE RECORDS SUMMARY | 2024-09-06 10:41 | XMS_ITS | Encounter Summary ---
Author Organization [facility] Address [facility] [place] [address] Care Team Providers Care Iron Handler Name Role Phone Yeimy Rodrigez MD Primary Care Provider [phone] Andrew Sethi MD Unavailable [phone] Yeimy Rodrigez MD Primary Care Provider [phone] Source Comments In the event this information is protected by the Federal Confidentiality of Alcohol and Drug AbusePatient Records regulations: The Federal rules restrict any use of the information to criminally investigate or prosecute any alcohol or drug abuse patient.[facility] Encounter Details Date Type Department Care Team (Late st Contact Info) Description 12/06/2012 Patient Msg Medical Records [address] [place] [address] Provider, Ccf Missing lab results Social History Tobacco Use Types Packs/Day Years Used Date Smoking Tobacco: Never Smokeless Tobacco: Never Alcohol Use Standard Drinks/Week Comments Yes 4.3 (1 standard drink = 0.6 oz p ure alcohol) special occasions Sex and Gender Information Value Date Recorded Sex Assigned at Not on file Legal Sex Male 8:19 AM EST Gender Identity Not on file Sexual Orientation Not on file Occupation Industry Job Start Date Job End Date Not on file Not on file Not on file 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
--- OUTSIDE RECORDS SUMMARY | 2024-09-06 10:41 | XMS_ITS | Encounter Summary ---
Author Organization [facility] Address [address] [place] [address] Care Team Providers Care Finish Machine Tender Name Role Phone Yeimy Rodrigez MD Primary Care Provider [phone] Source Comments In the event this information is protected by the Federal Confidentiality of Alcohol and Drug AbusePatient Records regulations: The Federal rules restrict any use of the information to criminally investigate or prosecute any alcohol or drug abuse patient.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 Answer Date of Assessment Author No 09/16/2014 2:46 PM Maurice Bass documented as of this encounter Mental Status * Because of a physical, mental, or emotional condition, do you have serious difficulty concentrating, remembering, or making decisions? Answer Entry Date Author No 09/16/2014 2:46 PM ALICE Maurice Holguin documented in this encounter Plan of Treatment Not on file documented as of this encounter Visit Diagnoses Not on filedocumented in this encounter Care Teams Finish Machine Tender Relationship Specialty Start Date End Date Yeimy Rodrigez MD [address] [place] [address] PCP - General Family Medicine 01/14/15 documented as of this encounter
--- OUTSIDE RECORDS SUMMARY | 2024-09-06 10:41 | XMS_ITS | Clinical Summary ---
Author Organization [facility] Address [address] [place] [address] Care Team Providers Care Dynamotor Repairer Name Role Phone Unavailable Primary Care Provider Unavailabl e Social History Tobacco Use Types Packs/Day Years Used Date Smoking Tobacco: Never Assessed Sex and Gender Information Value Date Recorded Sex Assigned at Not on file Legal Sex Male 8:32 PM EDT Gender Identity Not on file Sexual Orientation Not on file Last Filed Vital Signs Vital Sign Reading Time Taken Comments Blood Pressure - - Pulse - - Temperature - - Respiratory Rate - - Oxygen Saturation - - Inhaled Oxygen Concentration - - Weight 113 kg (250 lb) 07/20/2020 12:00 PM EDT Height 27.9 cm (11 ) 07/20/2020 12:00 PM EDT Body Mass Index 1452.64 07/20/2020 12:00 PM EDT Plan of Treatment Not on file Insurance [employer]
--- OUTSIDE RECORDS SUMMARY | 2024-09-06 10:41 | XMS_ITS | Encounter Summary ---
Author Organization [facility] Address [address] [place] [address] Care Team Providers Care Diver'S Tender Name Role Phone Yeimy Rodrigez MD Primary Care Provider [phone] Source Comments In the event this information is protected by the Federal Confidentiality of Alcohol and Drug AbusePatient Records regulations: The Federal rules restrict any use of the information to criminally investigate or prosecute any alcohol or drug abuse patient.[facility] Encounter Details Date Type Department Care Team (Late st Contact Info) Description 07/18/2017 Patient Msg Preventive Cardiology [address] [place] [address] Provider, Ccf courtesy reminder Social History Tobacco [...] 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
--- OUTSIDE RECORDS SUMMARY | 2024-09-06 10:41 | XMS_ITS | Encounter Summary ---
Author Organization [facility] Address [facility] [place] [address] Care Team Providers Care Button Grader Name Role Phone Yeimy Rodrigez MD Primary Care Provider [phone] Andrew Sethi MD Unavailable [phone] Yeimy Rodrigez MD Primary Care Provider [phone] Source Comments In the event this information is protected by the Federal Confidentiality of Alcohol and Drug AbusePatient Records regulations: The Federal rules restrict any use of the information to criminally investigate or prosecute any alcohol or drug abuse patient.[facility] Encounter Details Date Type Department Care Team (Late st Contact Info) Description 05/28/2013 Patient Msg Medical Records [address] [place] [address] Provider, Ccf Missing lab results Social History [...] Not on file Not on file 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
--- OUTSIDE RECORDS SUMMARY | 2024-09-06 10:41 | XMS_ITS | Encounter Summary ---
Author Organization [facility] Address [facility] [place] [address] Care Team Providers Care Rn Assessment Name Role Phone Yeimy Rodrigez MD Primary Care Provider [phone] Andrew Sethi MD Unavailable [phone] Yeimy Rodrigez MD Primary Care Provider [phone] Source Comments In the event this information is protected by the Federal Confidentiality of Alcohol and Drug AbusePatient Records regulations: The Federal rules restrict any use of the information to criminally investigate or prosecute any alcohol or drug abuse patient.[facility] Encounter Details Date Type Department Care Team (Late st Contact Info) Description 12/18/2014 Patient Msg Medical Records [address] [place] [address] Provider, Ccf Missing Lab Results Social History Tobacco Use Types Packs/Day Years [...] Not on file Not on file 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
--- OUTSIDE RECORDS SUMMARY | 2024-09-06 10:41 | XMS_ITS | Encounter Summary ---
Author Organization [facility] Address [address] [place] [address] Care Team Providers Care Well Testing Operator Name Role Phone Yeimy Rodrigez MD Primary Care Provider [phone] Source Comments In the event this information is protected by the Federal Confidentiality of Alcohol and Drug AbusePatient Records regulations: The Federal rules restrict any use of the information to criminally investigate or prosecute any alcohol or drug abuse patient.[facility] Encounter Details Date Type Department Care Team (Late st Contact Info) Description 02/28/2017 Patient Msg Preventive Cardiology [address] [place] [address] Provider, Ccf courtesy reminder Social [...] 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
--- OUTSIDE RECORDS SUMMARY | 2024-09-06 10:41 | XMS_ITS | Encounter Summary ---
Author Organization [facility] Address [address] [place] [address] Care Team Providers Care Director Of Head Start Name Role Phone Yeimy Rodrigez MD Primary Care Provider Source Comments In the event this information is protected by the Federal Confidentiality of Alcohol and Drug AbusePatient Records regulations: The Federal rules restrict any use of the information to criminally investigate or prosecute any alcohol or drug abuse patient.[facility] Encounter Details Date Type Department Care Team (Late st Contact Info) Description 10/02/2016 Patient Msg Preventive Cardiology [address] [place], [place] [id number] Provider, Ccf Reminder for appointment and labs [...] 2:46 PM ALICE Maurice Holguin lie * Do you have serious difficulty walking or climbing stairs? Answer Date of Assessment Author No 09/16/2014 2:46 PM ALICE Maurice Holguin lie * Do you have difficulty dressing or bathing? Answer Date of Assessment Author No 09/16/2014 2:46 PM ALICE Maurice Holguin lie * Because of a physical, mental, or emotional condition, do you have difficulty doing errands alone such as visiting a doctor's office or shopping? Answer Date of Assessment Author No 09/16/2014 2:46 PM ALICE Maurice Holguin documented as of this encounter Mental Status * Because of a physical, mental, or emotional condition, do you have serious difficulty concentrating, remembering, or making decisions? Answer Entry Date Author No 09/16/2014 2:46 PM ALICE Maurice Holguin documented in this encounter Plan of Treatment Not on file documented as of this encounter Visit Diagnoses Not on filedocumented in this encounter Care Teams Director Of Head Start Relationship Specialty Start Date End Date Yeimy Rodrigez MD [address] [place] [address] PCP - General Family Medicine 01/14/15 documented as of this encounter
--- OUTSIDE RECORDS SUMMARY | 2024-09-06 10:41 | XMS_ITS | Clinical Summary ---
Author Organization [facility] Address [address] [place] [address] Care Team Providers Care Heel Splitter Name Role Phone Unavailable Primary Care Provider Unavailabl e Social History Tobacco Use Types Packs/Day Years Used Date Smoking Tobacco: Never Assessed Sex and Gender Information Value Date Recorded Sex Assigned at Not on file Legal Sex Male 6:40 AM EST Gender Identity Not on file Sexual Orientation Not on file Plan of Treatment Not on file
[2024-09-06 10:45] LABS: Basophils Percent Auto 0.1 % (0.2-2.0); Eosinophils Absolute Auto 0.2 10^3/uL (0.0-0.7); Eosinophils Percent Auto 2.7 % (0.9-7.0); Hematocrit 45.5 % (42.0-54.0); Hemoglobin 15.6 g/dL (14.0-18.0); Immature Granulocytes Abs Auto 0.04 10^3/uL (0.00-0.03); Immature Granulocytes Pct Auto 0.5 % (0.0-0.5); Lymphocytes Absolute Auto 1.9 10^3/uL (1.2-3.8); Lymphocytes Percent Auto 21.9 % (20.5-60.0); Mean Corpuscular HGB Conc 34.3 g/dL (29.9-35.2); Mean Corpuscular Volume 81.7 fL (80.0-94.0); Mean Platelet Volume 10.6 fL (9.5-13.5); Monocytes Absolute Auto 0.5 10^3/uL (0.3-0.8); Monocytes Percent Auto 5.8 % (1.7-12.0); Neutrophils Absolute Auto 5.9 10^3/uL (1.4-6.5); Platelet Count 257 10^3/uL (150-450); Red Blood Count 5.57 10^6/uL (4.70-6.10); Red Cell Distribution Width 13.8 % (11.0-15.0); White Blood Count 8.5 10^3/uL (4.0-11.0)
[2024-09-06 11:13] LABS: Anion Gap 13.1; Calcium 9.1 mg/dL (8.5-10.1); Carbon Dioxide 28.8 mmol/L (21.0-32.0); Chloride 105 mmol/L (98-107); Estimated GFR (African America >60 (>=60 mL/min/1.73m^2); Estimated GFR (Non-African Ame >60 (>=60 mL/min/1.73m^2); Glucose 124 mg/dL (74-106); Potassium 3.9 mmol/L (3.5-5.1); Sodium 143 mmol/L (136-145); Troponin I High Sensitivity 6.9 pg/mL (4.0-76.1)
== END 2024-09-06 13:11 | disposition home or self-care (01) ==
PROVIDERS: Emergency Provider Emergency Medicine; PCP Family Medicine
DX: R20.2 Paresthesia of skin (principal); E11.9 Type 2 diabetes mellitus without complications; R07.9 Chest pain, unspecified; Z79.84 Long term (current) use of oral hypoglycemic drugs
CPT/HCPCS: 36415; 70450; 70496; 70498; 71045; 80048; 82948; 84484; 85025; 93005; 99285; Q9967

== ENCOUNTER 2025-02-09 14:20 | Outpatient (OUT) | payer OTHER, SELFPAY ==
--- OUTSIDE RECORDS SUMMARY | 2025-02-09 14:26 | XMS_ITS | Clinical Summary ---
Author Organization [facility] Address [address] [facility] [place] [address] Phone Care Team Providers Care Granite Fabricator Name Role Phone Unavailable Primary Care Provider Unavailabl e Social History Tobacco UseTypesPacks/DayYears UsedDateSmoking Tobacco: Never AssessedSex and Gender InformationValueDate RecordedSex Assigned at BirthNot on fileLegal Sex Male02/25/2022 11:12 AM ESTGender IdentityNot on fileSexual OrientationNot on file Plan of Treatment Not on file
--- OUTSIDE RECORDS SUMMARY | 2025-02-09 14:26 | XMS_ITS | Clinical Summary ---
Author Organization [facility] Healthcare Address [address] [place] [address] Care Team Providers Care Dragline Engineer Name Role Phone Unavailable Primary Care Provider Unavailabl e Social History Tobacco UseTypesPacks/DayYears UsedDateSmoking Tobacco: Never AssessedSex and Gender InformationValueDate RecordedSex Assigned at BirthNot on fileLegal Sex Male07/31/2022 8:32 PM EDTGender IdentityNot on fileSexual OrientationNot on file Last Filed Vital Signs Vital SignReadingTime TakenCommentsBlood Pressure--Pulse--Temperature-- Respiratory Rate--Oxygen Saturation--Inhaled Oxygen Concentration--Lwxwpn376 kg (250 lb)07/20/2020 12:00 PM [address]XYnspej69.9 cm (11 )07/20/2020 12:00 PM EDTBody Mass Trnrr5826.64007/20/2020 12:00 PM EDT Plan of Treatment Not on file Insurance * Guarantor: Crow Henderson AAccount TypeRelation to PatientDate of PhoneBilling AddressPersonal/WmbbyyJvgd54/26/1976 [facility] [address] [place] [address]
--- OUTSIDE RECORDS SUMMARY | 2025-02-09 14:26 | XMS_ITS | Clinical Summary ---
Author Organization [facility] Address [address] [place] [address], [address] [place] [address] Care Team Providers Care Aircraft Design Engineer Name Role Phone Unavailable Primary Care Provider Unavailabl e Social History Tobacco UseTypesPacks/DayYears UsedDateSmoking Tobacco: Never AssessedSex and Gender InformationValueDate RecordedSex Assigned at BirthNot on fileLegal Sex Male05/14/2012 6:40 AM ESTGender IdentityNot on fileSexual OrientationNot on file Plan of Treatment Not on file
--- OUTSIDE RECORDS SUMMARY | 2025-02-09 14:26 | XMS_ITS | Clinical Summary ---
Author Organization [facility] Address [address] [place] [address] Care Team Providers Care Radiological Technician Name Role Phone Yeimy Rodrigez MD Primary Care Provider [phone] Allergies Active AllergyReactionsCriticalityNoted DateCommentsSeasonal AllergiesOther: See Cbgywfwt51/13/2010 Sneezing, congestion, watery eyes Medications MedicationSigDispense QuantityRefillsLast FilledStart DateEnd DateStatus loratadine/pseudoephedrine (CLARITIN-D 24 HOUR ORAL) Take by mouth once daily.Active fluticasone (FLONASE ALLERGY RELIEF) 50 mcg/actuation nasal spray Use 1 [place] in each nostril as needed.Active Active Problems ProblemNoted DateDiagnosed OdgjYgba58/25/2015nnular tear of lumbar disc 01/07/2015Fall (on) (from) other stairs and steps, initial ovoiodlzh72/08/2015 Impaired fasting upgrhzm9703/03/2009HyperlipemiaFamily history of premature coronary heart diseaseEnlarged lymph node Overview (01/07/2015): inguinal Back pain Family History Medical HistoryRelationCommentsArthritisFatherCoronary Artery DiseaseFatherMI 57 years, alive, PCIHeart FailureFatherLipidsFatheralive age 55CancerMaternal GrandmotherDiabetesMaternal GrandmotherLipidsMotheralive age 50'sHeartPaternal Grandfatheralive age 80's; heart attack age 70'scolitis [Other]Paternal Grandfatheralso cousin and auntHeartPaternal Unclealive age 45; [place] age 40 HypertensionOtherRelationStatusCommentsFatherMaternal GrandmotherMotherPaternal GrandfatherPaternal UncleOther Social History Tobacco UseTypesPacks/DayYears UsedDateSmoking Tobacco: NeverSmokeless Tobacco: Never Tobacco Cessation:Counseling Given: Not Answered Alcohol UseStandard Drinks/WeekCommentsYes0 (1 standard drink = 0.6 oz pure alcohol)socialPHQ-2AnswerDate RecordedPHQ-2 zobhm114/24/2023Area Deprivation IndexAnswerDate RecordedNational Score (1-100), lower number is lower riskNot on file03/08/2020State Score (1-10), lower number is lower riskNot on file 03/08/2020Data from: https://www.neighborhoodatlas.medicine.[facility].edu/. Last address used for calculationNot on file03/08/2020Sex and Gender InformationValue Date RecordedSex Assigned at BirthNot on fileLegal PpaYxwa44/02/2012 8:19 AM EST Gender IdentityNot on fileSexual OrientationNot on fileOccupationIndustryJob Start DateJob End Datefinancial plannerNot on fileNot on fileNot on file Last Filed Vital Signs Vital SignReadingTime TakenCommentsBlood Zmuwhroa536/7805 12:26 PM EDT Ftmlo963408/24/2023 12:26 PM OLHQglykqouckn10.9 ??C (98.5 ??F)08/05/2014 2:42 PM EDTRespiratory Ffju6094 4:05 PM ESTOxygen Saturation--Inhaled Oxygen Concentration--Dwtplc395.5 kg (261 lb 3.2 oz)08/24/2023 12:26 PM ZOYCslfgw733.3 cm (5' 11 )08/24/2023 12:26 PM EDTBody Mass Index36.4305 12:26 PM EDT Plan of Treatment Health MaintenanceDue DateLast DoneCommentsAnxiety Xazuepnck88/26/1995Depression Musqgiyeg52/26/1995HIV Fimbykrju97/26/1995Hepatitis C Msyfeyzyd13/26/1995 DTaP,Tdap,Td Vaccine (1 - Tdap)12/27/1995CT Jrsanwokejji10/26/2022Cologuard (FIT-DNA)12/26/20214454Pwjuzbchdvo58/26/2022olorectal Cancer Zyhkungpr55/26/2022 Fecal Occult Blood12/26/20215279Uatkhjvvdlmfb87/26/2022ovid-19 Vaccine ( season)2024Influenza Vaccine (#1)5104/25/2019, 01/02/2019, 01/04/2018, Additional history existsDiabetes Ljaqjlkhi68, 03/14/2023, 01/28/2018, Additional history existsLipid Ezffnnhfv30/13/2028 03/14/2023, 01/28/2018, 07/19/2017, Additional history existsHepatitis B Vaccine Uqtazzfgy07/03/2013, 09/17/2012, 08/08/2012 Goals GoalPatient Goal TypeAssociated ProblemsRecent ProgressPatient-Stated?Author Blood Pressure < 140/90 Blood Tglnrfpm643/78(08/24/2023 12:26 PM EDT)Hilario Wan MD Procedures Procedure NamePriorityDate/TimeAssociated DiagnosisCommentsCOMPREHENSIVE METABOLIC OGHMYPxqdlin10/13/2023 9:42 AM EST Mixed hyperlipidemia Obesity, Class II, BMI 35-39.9 LIPID PANEL, MJGPMGJSyqpjcp50/13/2023 9:42 AM EST Chest pain, unspecified type from Last 3 Months or Most Recently Relevant to Health Maintenance Results * (ABNORMAL) LIPID PANEL BASIC (03/14/2023 9:42 AM EST)ComponentValueRef Range Test MethodAnalysis TimePerformed AtPathologist SignatureCholesterol, Rldiv709 <200 mg/dL03/14/2023 6:26 PM [facility]: <200 mg/dL, Desirable 200-239 mg/dL, Borderline high >239 mg/dL, High Bjeglfkfqpkn071(H)<150 mg/dL03/14/2023 6:26 PM [facility]Comment: <150 mg/dL, Normal 150-199 mg/dL, Borderline high 200-499 mg/dL, High >499 mg/dL, Very high HDL Wpvcqpyttxx18(L)>39 mg/dL03/14/2023 6:26 PM [facility]Comment: 40-59 mg/dL, Acceptable >59 mg/dL, High: Negative risk factor for coronary heart disease <40 mg/dL, Low: Positive risk factor for coronary heart disease Non HDL Oqfzbwaequh804(H)<130 mg/dL03/14/2023 6:26 PM [facility]Comment: <130 mg/dL, Optimal 130-159 mg/dL, Near optimal/above optimal 160-189 mg/dL, Borderline high 190-219 mg/dL, High >219 mg/dL, Very high Secondary prevention optimal non HDL Cholesterol levels are recommended to be <100 mg/dL Fasting Nfmg94rca60/13/2023 6:26 PM [facility] LABVLDL Ywanlkvqjwg89(H)<30 mg/dL03/14/2023 6:26 PM [facility] TC:HDL Ratio6.72(H)<5.10105/15/2022 6:26 PM [facility] LDL Cholesterol, Lcfndhvhtq976(H)<100 mg/dL03/14/2023 6:26 PM [facility]Comment: <100 mg/dL, Optimal 100-129 mg/dL, Near optimal/above optimal 130-159 mg/dL, Borderline high 160-189 mg/dL, High >189 mg/dL, Very high Secondary prevention optimal LDL Cholesterol levels are recommended to be < 70 mg/dL LDL:HDL Ratio4.48(H)<2.5403/14/2023 6:26 PM [facility] Comment: Reference: 1. National Cholesterol Education Program ATP III Guideline At-A-Glance Quick Desk Reference: National Heart, Lung, and Blood [place]. National Institutes of Health. 2001: NIH Publication No. 01-3305. 2. An International Atherosclerosis Society position paper: global recommendations for the management of dyslipidemia: executive summary, Atherosclerosis. 2014: 232(2):410-413. Specimen (Source)Anatomical Location / LateralityCollection Method / Volume Collection TimeReceived TimeBloodBLOOD SPECIMEN / UnknownVenipuncture / Unknown 03/14/2023 9:42 AM EST03/14/2023 9:43 AM EST Narrative Authorizing ProviderResult TypeResult StatusHilario Thurston MDLABORATORYFinal ResultPerforming OrganizationAddressCity/State/ZIP CodePhone Number [facility] [address] [place] [address], * (ABNORMAL) COMP METABOLIC PANEL (03/14/2023 9:42 AM EST)ComponentValueRef RangeTest MethodAnalysis TimePerformed AtPathologist SignatureProtein, Total 7.76.3 - 8.0 g/dL03/14/2023 6:26 PM [facility] LABAlbumin 5.0(H)3.9 - 4.9 g/dL03/14/2023 6:26 PM [facility] Calcium, Total9.88.5 - 10.2 mg/dL03/14/2023 6:26 PM [facility] LABBilirubin, Total0.40.2 - 1.3 mg/dL03/14/2023 6:26 PM [facility] LABAlkaline Jslzfwqlpbz7921 - 113 U/L105/15/2022 6:26 PM EST [facility] MXVEMQ9086 - 40 U/L105/15/2022 6:26 PM EST [facility] VFXHFU1253 - 54 U/L105/15/2022 6:26 PM EST [facility] NHLCmsamwa400(H)74 - 99 mg/dL03/14/2023 6:26 PM [facility] LABComment: The [place] Diabetes Association (ADA) provides guidance for cutoff values for fasting glucose andrandom glucose. The ADA defines fasting as no [...] Standards of Medical Care in Diabetes 2016, [place] Diabetes Association. Diabetes Care. 2016.39(Suppl 1). ABD098 - 24 mg/dL03/14/2023 6:26 PM [facility] Creatinine1.25(H)0.73 - 1.22 mg/dL03/14/2023 6:26 PM [facility] MRYUoqgxj837612 - 144 mmol/L105/15/2022 6:26 PM [facility] LABPotassium4.13.7 - 5.1 mmol/L105/15/2022 6:26 PM [facility] AFAOjobuvrd24398 - 105 mmol/L105/15/2022 6:26 PM [facility] PYYNC65867 - 30 mmol/L105/15/2022 6:26 PM [facility] LABAnion Xrl509 - 18 mmol/L105/15/2022 6:26 PM [facility] LABEstimated Glomerular Filtration Rate72>=60 mL/min/1.73m 03/14/2023 6:26 PM [facility] LABComment:Estimated Glomerular Filtration Rate (eGFR) is calculated using the 2020 CKD-EPI creatinine equation. This equation utilizes serum creatinine, sex, and age as parameters. The creatinine assay has traceable calibration to isotope dilution- mass spectrometry. Refer to KDIGO guidelines for clinical interpretation. In patients with unstable renal function, e.g. those with acute kidney injury, the eGFRmay not accurately reflect actual GFR.Specimen (Source)Anatomical Location / LateralityCollection Method / VolumeCollection TimeReceived TimeBloodBLOOD SPECIMEN / UnknownVenipuncture / Baythhz5003/14/2023 9:42 AM EST03/14/2023 9:43 AM EST Narrative Authorizing ProviderResult TypeResult StatusHilario Thurston MDLABORATORYFinal ResultPerforming OrganizationAddressCity/State/ZIP CodePhone Number [facility] [address] [place] [address], from Last 3 Months or Most Recently Relevant to Health Maintenance Insurance MemberSubscriberPlan / Payer (Effective 2018-Present)Name:Crow Henderson Cong Relation to Subscriber:SelfName:Crow Henderson Payer ID:Not on file Group ID:Not on file Type:PPO Address: [place] [id number] Care Teams Team MemberRelationshipSpecialtyStart DateEnd Date Yeimy Rodrigez MD [address] [place] [phone] PCP - GeneralFamily Gfawgjhn38/15/15
--- NOTE | 2025-02-09 14:29 | XR_ITS ---
The [address] [address] Patient Name: KAROLINA TERRY MRN: [id number] date: 1975 Sex: M Assigned Patient Location: [facility] Current Patient Location: Accession/Order Number: [id number] Exam Date: 02/09/2025 14:32 Report Date: 02/10/2025 08:36 At the request of: BING MATUTE MD Procedure: XR elbow RT min 3V RIGHT ELBOW - 3 VIEWS CLINICAL HISTORY: Right elbow pain for the past 2 weeks since holding a dog back from a skunk. COMPARISON: None AP, lateral and internal oblique views were obtained. There is no definite acute fracture or dislocation. There is minor spurring at the trochlear notch, distal humerus and radial head/neck. No elbow effusion or soft tissue swelling is noted. XR/XR elbow RT min 3V IMPRESSION: MILD DEGENERATIVE CHANGES. NO DEFINITE ACUTE BONY INJURY. FOLLOW-UP IS RECOMMENDED, SYMPTOMS WARRANT. Impression dictated by: Hanny White M.D. 02/10/2025 8:36 AM Dictation Location: [place] [address] Electronically authenticated by: [id number] Y Date: 02/10/2025 08:36
== END 2025-02-09 14:21 | disposition home or self-care (01) ==
LOC: RAD 14:23
PROVIDERS: PCP Family Medicine; Visit Provider Family Medicine
DX: M25.521 Pain in right elbow (principal)
CPT/HCPCS: 73080